=== PATIENT | male | born 1990 | race Caucasian/White ===

== ENCOUNTER 2024-12-16 14:35 | Emergency (ER) | payer BC, SELFPAY ==
--- NOTE | ~2024-12-16 | CT_ITS ---
CT brain wo con HISTORY:brain fog x5d COMPARISON: None. TECHNIQUE: Axial images were obtained of the head without intravenous contrast. FINDINGS: No acute intracranial hemorrhage, mass effect or midline shift. No extra-axial fluid collections. The calvarium is intact. Visualized paranasal sinuses and mastoid air cells are clear. IMPRESSION: No acute intracranial hemorrhage or extra axial fluid collections. All CT scans at this facility are performed using low dose modulation techniques as appropriate to perform exam including the following: automated exposure control; use of iterative reconstruction technique; adjustment of the mA and/or kV according to patient size (this includes techniques or standardized protocols for targeted exams where dose is matched to indication/reason for exam). Reviewed, dictated and finalized at location S. IMPRESSION: No acute intracranial hemorrhage or extra axial fluid collections. All CT scans at this facility are performed using low dose modulation techniqu es as appropriate to perform exam including the following: automated exposure c ontrol; use of iterative reconstruction technique; adjustment of the mA and/or kV according to patient size (this includes techniques or standardized protocol s for targeted exams where dose is matched to indication/reason for exam).
--- NOTE | ~2024-12-16 | CT_ITS ---
CT abdomen pelvis w con INDICATION:abd pain, diarrhea x5d . COMPARISON: None. TECHNIQUE: Axial images of the abdomen and pelvis were obtained following infusion of 100 mL Isovue 300. Dose optimization technique was utilized. FINDINGS: The lung bases are clear. Fatty infiltration of the liver is noted. No intrahepatic mass or ductal dilatation is evident. The gallbladder is unremarkable. The pancreas and spleen are normal in appearance. The adrenal glands are symmetric in size. The kidneys demonstrate symmetric uptake and excretion of contrast. No cystic mass is evident. There is no solid mass. There is no hydronephrosis. Evaluation of the stomach and bowel loops are limited due to lack of oral contrast. The appendix is not visualized however no secondary signs of appendicitis are identified. There is colonic diverticulosis without evidence of acute diverticulitis. The bladder and rectum are normal. No free intraperitoneal fluid or air is evident. There is no significant retroperitoneal lymphadenopathy. The aorta, visceral vessels and renal arteries demonstrate normal caliber and patency. The lower thoracic and lumbar vertebrae are in normal alignment. IMPRESSION: No acute abnormality is noted in the abdomen and pelvis. Hepatic steatosis. Colonic diverticulosis without evidence of acute diverticulitis. All CT scans at this facility are performed using low dose modulation techniques as appropriate to perform exam including the following: automated exposure control; use of iterative reconstruction technique; adjustment of the mA and/or kV according to patient size (this includes techniques or standardized protocols for targeted exams where dose is matched to indication/reason for exam). Reviewed, dictated and finalized at location S. IMPRESSION: No acute abnormality is noted in the abdomen and pelvis. Hepatic steatosis. Colonic diverticulosis without evidence of acute diverticulitis. All CT scans at this facility are performed using low dose modulation techniqu es as appropriate to perform exam including the following: automated exposure c ontrol; use of iterative reconstruction technique; adjustment of the mA and/or kV according to patient size (this includes techniques or standardized protocol s for targeted exams where dose is matched to indication/reason for exam).
[2024-12-16 15:14] VITALS: BP 140/89; PULSE 85; RESP 16; TEMP 36.5; O2SAT 99
--- NOTE | 2024-12-16 16:37 | ED.WEAKNESS ---
HPI - Weakness General Chief complaint: Weakness <Melina Morrison PA-C - Last Filed: 12/17/24 17:14> Stated complaint: LETHARGY, BRAIN FOG FOR PAST 5 DAYS <Melina Morrison PA-C - Last Filed: 12/17/24 17:14> Time Seen by Provider: 12/16/24 16:37 <Melina Morrison PA-C - Last Filed: 12/17/24 17:14> Focused HPI: This is a 33 year old male that presents to the ER for weakness. Reports he had a stomach bug. Ever since then he has been having trouble eating. Only able to keep down bland foods. Reports feeling lethargic, heavy brain fog. GENERAL: Well-appearing, well-nourished, and in no acute distress. HEAD: Normocephalic, atraumatic. CHEST: Clear to auscultation. ?No respiratory distress. HEART: Regular rate and rhythm.? NEURO: ?Alert and oriented x3. Patient screened in triage and initial orders placed.? ?Additional care and disposition to be based upon?diagnostic testing and treatment. <Melina Morrison PA-C - Last Filed: 12/17/24 17:14> Focused HPI: This is a 33 year old male that presents to the ER for weakness. Reports he had a stomach bug. Ever since then he has been having trouble eating. Only able to keep down bland foods. Reports feeling lethargic, heavy brain fog. GENERAL: Well-appearing, well-nourished, and in no acute distress. HEAD: Normocephalic, atraumatic. CHEST: Clear to auscultation. ?No respiratory distress. HEART: Regular rate and rhythm.? NEURO: ?Alert and oriented x3. Patient screened in triage and initial orders placed.? ?Additional care and disposition to be based upon?diagnostic testing and treatment. <ROMEL Polk Last Filed: 12/16/24 22:12> Source: patient <ROMEL Polk Last Filed: 12/16/24 22:12> Mode of arrival: ambulatory <ROMEL Polk Last Filed: 12/16/24 22:12> Limitations: no limitations <ROMEL Polk Last Filed: 12/16/24 22:12> History of Present Illness HPI Narrative: Agree with above HPI. Reports stomach bug began on Friday, with diarrhea, abd pain/cramping with eating. Denies focal weakness/numbness, cough/congestion. Hx of tic disorder <ROMEL Polk Last Filed: 12/16/24 22:12> Related Data Allergies/Adverse reactions: Allergies Allergy/AdvReac Type Severity Reaction Status Date / Time No Known Allergies Allergy Verified 12/16/24 14:36 <ROMEL Lopez Last Filed: 12/17/24 17:14> Review of Systems Review of Systems: All systems reviewed & are unremarkable except as noted in HPI. <ROMEL Polk Last Filed: 12/16/24 22:12> All systems reviewed & are unremarkable except as noted in HPI and below <ROEML Polk Last Filed: 12/16/24 22:12> Exam Narrative: GENERAL: Well appearing, well-nourished, non-toxic, in no acute distress. HEAD: Normocephalic, atraumatic. EYES: PERRL/EOMI, conjunctivae clear bilaterally. No nystagmus. NECK: Supple. No meningeal signs. RESPIRATORY: Airway patent, respirations nonlabored. Clear to auscultation bilaterally, no rales, rhonchi, wheezing. CARDIOVASCULAR: Regular rate and rhythm without murmurs, rubs, or gallops. Peripheral pulses 2+ and equal bilaterally. ABDOMINAL: Soft, no significant focal tenderness, nondistended. Normoactive BS. MUSCULOSKELETAL: Moves all extremities. No gross deformities. SKIN: Warm, dry, normal color. No rashes. NEURO: A&O X3. Speech clear. Follows commands. CN II-XII intact. Sensation grossly intact. Steady gait. Intermittent tic of neck/head. Strength 5/5 in upper and lower extremities bilaterally. No pronator drift. Equal fishing guide strength bilaterally. PSYCHIATRIC: Appropriate mood and affect. Normal interaction. <ROMEL Polk Last Filed: 12/16/24 22:12> Course Vital Signs Vital signs: Vital Signs Temperature 97.7 F 12/16/24 15:14 Pulse Rate 85 12/16/24 15:14 Respiratory Rate 16 12/16/24 15:14 Blood Pressure 140/89 12/16/24 15:14 Pulse Oximetry 99 12/16/24 15:14 Oxygen Delivery Room Air 12/16/24 15:14 Temperature 97.7 F 12/16/24 15:14 Pulse Rate 76 12/16/24 21:51 Respiratory Rate 14 12/16/24 21:51 Blood Pressure 101/77 12/16/24 21:51 Pulse Oximetry 100 12/16/24 21:51 Oxygen Delivery Room Air 12/16/24 15:14 <Melina Morrison PA-C - Last Filed: 12/17/24 17:14> Vital Signs Temperature 97.7 F 12/16/24 15:14 Pulse Rate 85 12/16/24 15:14 Respiratory Rate 16 12/16/24 15:14 Blood Pressure 140/89 12/16/24 15:14 Pulse Oximetry 99 12/16/24 15:14 Oxygen Delivery Room Air 12/16/24 15:14 Temperature 97.7 F 12/16/24 15:14 Pulse Rate 76 12/16/24 21:51 Respiratory Rate 14 12/16/24 21:51 Blood Pressure 101/77 12/16/24 21:51 Pulse Oximetry 100 12/16/24 21:51 Oxygen Delivery Room Air 12/16/24 15:14 <Norma Butterfield PA-C - Last Filed: 12/16/24 22:12> MDM - Weakness MDM Narrative Medical decision making narrative: Patient presented to ED with several day history of lethargy, brain fog, abdominal pain/cramping with the eating. Recent stomach bug. Vital signs are stable upon arrival. Patient is in no acute distress. He is neurologically intact upon my exam. No focal deficits. CT brain unremarkable. Laboratory studies without leukocytosis or anemia. Stable electrolytes. Stable kidney function. AST is elevated to 94, ALT 203. Normal total bilirubin. Normal lipase. Patient without significant right upper quadrant tenderness. UA without evidence of dehydration or infection. Viral swabs are negative. [place] testing negative. TSH WNL. CT of the abdomen/pelvis was obtained also fairly unremarkable. No show hepatic steatosis. No other significant concerning findings. Discussed lab and imaging findings, overall reassuring workup with patient. Discussed high likelihood of viral syndrome causing fatigue/lethargy. Otherwise feel patient is safe for discharge home. Advised to stay well hydrated, get plenty of rest. Recommended follow-up with PCP for further evaluation as needed, repeat laboratory testing of liver enzymes. Discussed strict return precautions. Patient is in agreement with plan. Feels comfortable going home. Discharged in stable condition. <Norma Butterfield PA-C - Last Filed: 12/16/24 22:12> Medical Records Attestation: I reviewed the patient's medical records. <Norma Butterfield PA-C - Last Filed: 12/16/24 22:12> Lab Data Attestation: I reviewed the patient's lab results. <Norma Butterfield PA-C - Last Filed: 12/16/24 22:12> Result diagrams: 12/16/24 17:56 12/16/24 17:56 <Melina Morrison PA-C - Last Filed: 12/17/24 17:14> Labs: Lab Results 12/16/24 12/16/24 Range/Units 17:56 18:23 WBC 6.6 (4.5-10.0) K/mm3 RBC 5.73 (4.6-6.20) M/mm3 Hgb 16.4 (14.0-18.0) g/dL Hct 49.4 (42.0-52.0) % MCV 86.2 (80-100) fl MCH 28.6 (26-34) pg MCHC 33.2 (32-36) g/dl RDW 13.2 (11.5-14.5) % Plt Count 286 (150-375) k/mm3 MPV 9.6 (7.4-10.4) fl Immature Gran % (Auto) 0.3 (0-0.5) % Neut % (Auto) 44.8 L (45.5-73.1) % Lymph % (Auto) 41.9 (18.3-44.2) % [place] % (Auto) 10.5 H (2.6-8.5) % Eos % (Auto) 2.0 (0-4.4) % Baso % (Auto) 0.5 (0.2-1.2) % Lymph # (Auto) 2.75 (0.9-3.2) K/mm3 [place] # (Auto) 0.7 H (0.1-0.6) K/mm3 Eos # (Auto) 0.1 (0-0.3) K/mm3 Baso # (Auto) 0.0 (0.0-0.1) K/mm3 Abs Immat Gran (auto) 0.02 (0.00-0.031) K/mm3 Absolute Neuts (auto) 2.9 (1.3-6.7) K/mm3 Absolute Nucleated RBC 0.000 (0.0-0.012) K/mm3 Nucleated RBC % 0.0 (0.0-0.2) % Sodium 141 (137-145) mmol/L Potassium 4.4 (3.4-5.0) mmol/L Chloride 103 (98-107) mmol/L Carbon Dioxide 29 (22-30) mmol/L Anion Gap 9 (4-12) mmol/L BUN 10 (9-20) mg/dL Creatinine 0.93 (0.7-1.3) mg/dL Estim Creat Clear Calc 91 ml/min Estimated GFR > 60 (59 - ) Glucose 94 (65-110) mg/dL Calcium 9.4 (8.4-10.2) mg/dL Magnesium 2.5 H (1.6-2.3) mg/dL Total Bilirubin 1.0 (0.2-1.3) mg/dL AST 94 H (17-59) U/L ALT 203 H (6-50) U/L Alkaline Phosphatase 62 (38-126) U/L Total Protein 8.4 H (6.3-8.2) g/dL Albumin 4.9 (3.5-5.1) g/dL Lipase 145 (23-300) U/L TSH (Reflex) 2.260 (0.465-4.68) uIU/mL Urine Color Yellow (Yellow) Urine Appearance Clear (Clear) Urine pH 5.5 (5.0-9.0) Ur Specific [place] 1.017 (1.001-1.035) Urine Protein Negative (Negative) mg/dL Urine Glucose (UA) Negative (Negative) mg/dL Urine Ketones Negative (Negative) mg/dL Ur Blood (Man) Negative (Negative) Urine Nitrate Negative (Negative) Urine Bilirubin Negative (Negative) Urine Urobilinogen 0.2 (<2.0) mg/dL Leukocyte Esterase Rfl Negative (Negative) JUAN/UL Urine Opiates Screen Negative (Negative) Urine Methadone Screen Negative (Negative) Ur Barbiturates Screen Negative (Negative) Ur Phencyclidine Scrn Negative (Negative) Ur Amphetamine Screen Negative (Negative) U Benzodiazepines Scrn Negative (Negative) Urine Cocaine Screen Negative (Negative) U Cannabinoids Screen Negative (Negative) Monoscreen Negative (Negative) Influenza A (RT-PCR) Negative (Negative) Influenza B (RT-PCR) Negative (Negative) RSV (RT-PCR) Negative (Negative) SARS-CoV-2 RNA (RT-PCR) Negative (Negative) <Melina Morrison PA-C - Last Filed: 12/17/24 17:14> Lab Results 12/16/24 12/16/24 Range/Units 17:56 18:23 WBC 6.6 (4.5-10.0) K/mm3 RBC 5.73 (4.6-6.20) M/mm3 Hgb 16.4 (14.0-18.0) g/dL Hct 49.4 (42.0-52.0) % MCV 86.2 (80-100) fl MCH 28.6 (26-34) pg MCHC 33.2 (32-36) g/dl RDW 13.2 (11.5-14.5) % Plt Count 286 (150-375) k/mm3 MPV 9.6 (7.4-10.4) fl Immature Gran % (Auto) 0.3 (0-0.5) % Neut % (Auto) 44.8 L (45.5-73.1) % Lymph % (Auto) 41.9 (18.3-44.2) % [place] % (Auto) 10.5 H (2.6-8.5) % Eos % (Auto) 2.0 (0-4.4) % Baso % (Auto) 0.5 (0.2-1.2) % Lymph # (Auto) 2.75 (0.9-3.2) K/mm3 [place] # (Auto) 0.7 H (0.1-0.6) K/mm3 Eos # (Auto) 0.1 (0-0.3) K/mm3 Baso # (Auto) 0.0 (0.0-0.1) K/mm3 Abs Immat Gran (auto) 0.02 (0.00-0.031) K/mm3 Absolute Neuts (auto) 2.9 (1.3-6.7) K/mm3 Absolute Nucleated RBC 0.000 (0.0-0.012) K/mm3 Nucleated RBC % 0.0 (0.0-0.2) % Sodium 141 (137-145) mmol/L Potassium 4.4 (3.4-5.0) mmol/L Chloride 103 (98-107) mmol/L Carbon Dioxide 29 (22-30) mmol/L Anion Gap 9 (4-12) mmol/L BUN 10 (9-20) mg/dL Creatinine 0.93 (0.7-1.3) mg/dL Estim Creat Clear Calc 91 ml/min Estimated GFR > 60 (59 - ) Glucose 94 (65-110) mg/dL Calcium 9.4 (8.4-10.2) mg/dL Magnesium 2.5 H (1.6-2.3) mg/dL Total Bilirubin 1.0 (0.2-1.3) mg/dL AST 94 H (17-59) U/L ALT 203 H (6-50) U/L Alkaline Phosphatase 62 (38-126) U/L Total Protein 8.4 H (6.3-8.2) g/dL Albumin 4.9 (3.5-5.1) g/dL Lipase 145 (23-300) U/L TSH (Reflex) 2.260 (0.465-4.68) uIU/mL Urine Color Yellow (Yellow) Urine Appearance Clear (Clear) Urine pH 5.5 (5.0-9.0) Ur Specific [place] 1.017 (1.001-1.035) Urine Protein Negative (Negative) mg/dL Urine Glucose (UA) Negative (Negative) mg/dL Urine Ketones Negative (Negative) mg/dL Ur Blood (Man) Negative (Negative) Urine Nitrate Negative (Negative) Urine Bilirubin Negative (Negative) Urine Urobilinogen 0.2 (<2.0) mg/dL Leukocyte Esterase Rfl Negative (Negative) JUAN/UL Urine Opiates Screen Negative (Negative) Urine Methadone Screen Negative (Negative) Ur Barbiturates Screen Negative (Negative) Ur Phencyclidine Scrn Negative (Negative) Ur Amphetamine Screen Negative (Negative) U Benzodiazepines Scrn Negative (Negative) Urine Cocaine Screen Negative (Negative) U Cannabinoids Screen Negative (Negative) Monoscreen Negative (Negative) Influenza A (RT-PCR) Negative (Negative) Influenza B (RT-PCR) Negative (Negative) RSV (RT-PCR) Negative (Negative) SARS-CoV-2 RNA (RT-PCR) Negative (Negative) <Norma Butterfield PA-C - Last Filed: 12/16/24 22:12> Imaging Data Attestation: I personally reviewed and interpreted this imaging study as follows: <ROMEL Polk Last Filed: 12/16/24 22:12> Radiologist's impression: ITS Impressions Head CT 12/16/24 19:22 IMPRESSION: No acute intracranial hemorrhage or extra axial fluid collections. All CT scans at this facility are performed using low dose modulation techniques as appropriate to perform exam including the following: automated exposure control; use of iterative reconstruction technique; adjustment of the mA and/or kV according to patient size (this includes techniques or standardized protocols for targeted exams where dose is matched to indication/reason for exam). Abdomen/Pelvis CT 12/16/24 19:24 IMPRESSION: No acute abnormality is noted in the abdomen and pelvis. Hepatic steatosis. Colonic diverticulosis without evidence of acute diverticulitis. All CT scans at this facility are performed using low dose modulation techniques as appropriate to perform exam including the following: automated exposure control; use of iterative reconstruction technique; adjustment of the mA and/or kV according to patient size (this includes techniques or standardized protocols for targeted exams where dose is matched to indication/reason for exam). <ROMEL Polk Last Filed: 12/16/24 22:12> Discharge Plan Discharge Clinical Impression: Transaminitis, Viral syndrome Fatigue Qualifiers: Fatigue type: unspecified Qualified Code(s): R53.83 - Other fatigue <ROMEL Lopez Last Filed: 12/17/24 17:14> Patient Disposition: Home <ROMEL Lopez Last Filed: 12/17/24 17:14> Condition: Stable <Melina Morrison PA-C - Last Filed: 12/17/24 17:14> Instructions: Antibiotic Form, Gastroenteritis (ED), Viral Syndrome (ED), Fatigue (ED) <Melina Morrison PA-C - Last Filed: 12/17/24 17:14> Additional Instructions: Your workup here was fairly unremarkable. Your liver enzymes are very slightly elevated. It is likely you have a viral infection. Get plenty of rest. Stay very well hydrated. Follow-up with your primary care doctor for further evaluation repeat laboratory testing. Return to the ED if you experience severe pain, unable to keep down food or drink, persistent fevers, numbness or weakness of arm or leg, severe dizziness, passing out, or any other symptoms of concern. <Melina Morrison PA-C - Last Filed: 12/17/24 17:14> Patient Language: Mongolian <Melina Morrison PA-C - Last Filed: 12/17/24 17:14> Follow-up/Referrals: Paulo,Jayesh Roth MD [Primary Care Provider, Unknown] <Melina Morrison PA-C - Last Filed: 12/17/24 17:14> Time of Disposition: 21:34 <ROMEL Lopez Last Filed: 12/17/24 17:14> 21:34 <Norma Butterfield PA-C - Last Filed: 12/16/24 22:12>
[2024-12-16 17:53] VITALS: BP 122/78; PULSE 71; RESP 16; O2SAT 100
[2024-12-16] MEDS: ONDANSETRON INJ 4 MG/2 ML VIAL IV PUSH (17:54)
[2024-12-16] MEDS: FAMOTIDINE 20 MG/2 ML VIAL IV PUSH (17:54)
[2024-12-16 18:02] VITALS: BP 137/97; PULSE 90; RESP 15; O2SAT 100
[2024-12-16 18:03] LABS: Hematocrit 49.4 % (42.0-52.0); Hemoglobin 16.4 g/dL (14.0-18.0); Immature Granulocyte Percent A 0.3 % (0-0.5); Lymphocytes Absolute Auto 2.75 K/mm3 (0.9-3.2); Mean Corpuscular HGB Conc 33.2 g/dl (32-36); Mean Corpuscular Hemoglobin 28.6 pg (26-34); Mean Corpuscular Volume 86.2 fl (80-100); Nucleated Red Blood Cells Absolute Auto 0.000 K/mm3 (0.0-0.012); Nucleated Red Blood Cells Perc 0.0 % (0.0-0.2); Platelet Count Result 286 k/mm3 (150-375); Red Blood Count 5.73 M/mm3 (4.6-6.20); White Blood Count 6.6 K/mm3 (4.5-10.0)
[2024-12-16 18:15] VITALS: O2SAT 100
[2024-12-16 18:36] LABS: Add Urine Microscopic? NO; Appearance Urine Clear (Clear); Glucose Urine UA Negative (Negative); Leukocyte Esterase Ur Negative LEU/UL (Negative); Nitrate Urine Negative (Negative); Specific Grav Ur 1.017 (1.001-1.035)
[2024-12-16 18:36] LABS: Alanine Aminotransferase 203 U/L (6-50); Albumin Level 4.9 g/dL (3.5-5.1); Alkaline Phosphatase 62 U/L (38-126); Anion Gap 9 mmol/L (4-12); Aspartate Amino Transferase 94 U/L (17-59); Bilirubin,Total 1.0 mg/dL (0.2-1.3); Blood Urea Nitrogen 10 mg/dL (9-20); Calcium 9.4 mg/dL (8.4-10.2); Carbon Dioxide 29 mmol/L (22-30); Chloride 103 mmol/L (98-107); Estimated CRCL calculation 91 ml/min; Estimated Glomerular Filt Rate > 60; Glucose 94 mg/dL (65-110); Lipase 145 U/L (23-300); Potassium 4.4 mmol/L (3.4-5.0); Sodium 141 mmol/L (137-145); Total Protein 8.4 g/dL (6.3-8.2)
[2024-12-16 18:52] LABS: Magnesium 2.5 mg/dL (1.6-2.3)
[2024-12-16] MEDS: SODIUM CHLORIDE 0.9% IV 1,000 ML 999 ML IV CONT (18:59)
[2024-12-16 19:00] VITALS: BP 136/90; PULSE 84; RESP 16; O2SAT 99
[2024-12-16 19:10] LABS: Influenza A QL RT-PCR Negative (Negative); Influenza B QL RT-PCR Negative (Negative); RSV RNA, RT-PCR Negative (Negative); SARS-CoV-2 RNA PCR Negative (Negative)
[2024-12-16 20:05] LABS: Negative Monotest Control Negative (Negative); Positive Monotest Control Positive (Positive)
[2024-12-16 21:32] LABS: Thyroid Stimulating Hormone Reflex 2.260 uIU/mL (0.465-4.68)
[2024-12-16 21:51] VITALS: BP 101/77; PULSE 76; RESP 14; O2SAT 100
[2024-12-16 22:18] LABS: Cannabinoid Screen Urine Negative (Negative)
== END 2024-12-16 21:52 | disposition home or self-care (01) ==
PROVIDERS: Physician Assistant; Emergency Provider Physician Assistant; PCP Internal Medicine
DX: B34.9 Viral infection, unspecified (principal); R74.01 Elevation of levels of liver transaminase levels; R53.83 Other fatigue; Z20.822 Contact with and (suspected) exposure to COVID-19; K76.0 Fatty (change of) liver, not elsewhere classified; K57.90 Diverticulosis of intestine, part unspecified, without perforation or abscess without bleeding
CPT/HCPCS: 36415; 70450; 74177; 80053; 80307; 81003; 83690; 83735; 84443; 85025; 86308; 87637; 96361; 96374; 96375; 99284; J2405; J7030; Q9967